=== PATIENT | female | born 1995 | race Caucasian/White ===

== ENCOUNTER → 2019-01-04 15:00 | Day surgery (SDC) | payer OTHER ==
[~2019-01-04 15:00] MED LIST: Dexamethasone IV* 4 MG/ML 1 ML (4 MG) ONE; EPHEDrine (Pressors)* 50 MG/ML VIAL ONE; Ketorolac INJ* 30 MG/ML 1 ML VIAL ONE; Lidocaine 2% PF * 5 ML VIAL ONE; Naloxone* 0.4 MG/ML 1 ML VIAL IV PRN; Ondansetron INJ* 2 MG/ML VIAL ONE; Propofol* 10 MG/ML 20 ML BTL ONE; fentaNYL* 50 MCG/ML 2 ML VIAL (100 MCG VIAL) ONE
--- NOTE | 2019-01-04 17:34 | BRIEFOPN ---
Brief Operative Note - Surgery Procedures: OPERATIVE REPORT Pre-op: Right breast abscess Post-Op: Right retroareolar breast abscess Procedure:I and D right breast abscess Surgeon: MD Leif Asst: none Anes: general with local , Dr. Bahena IVF:min EBL:min Specimen: Pus for gram stain and culture Drain: /" Melonie drain Wound: 4 To PACU
[2019-01-04 18:34] VITALS: BP 133/101
--- NOTE | 2019-01-07 09:25 | OP ---
CC: [facility] * DATE OF OPERATION: 01/04/19 - SDS DATE OF : 96 SURGEON: Saeed Yadav MD. EVENT OPERATIONS MANAGER: None. ANESTHESIOLOGIST: Dr. Bahena. ANESTHESIA: General with local. PRE-OP DIAGNOSIS: Right retroareolar breast abscess. POST-OP DIAGNOSIS: Right retroareolar breast abscess. OPERATIVE PROCEDURE: Incision and drainage of right retroareolar breast abscess. WOUND CLASSIFICATION: IV. SPECIMENS: Pus for Gram stain and culture from abscess. DRAIN: 1/4-inch Melonie drain. COMPLICATIONS: None. INDICATION: Ms. Paris Siu is a 23-year-old [employer] senior, who has had increasing discomfort with pain behind the right nipple, right breast. She had nipple ring in place, which we reviewed yesterday. She was seen in the [facility] and started on antibiotics several days ago and referred for surgical evaluation. She was seen in the office yesterday, noted to have a tender firm mass in the retroareolar area with an ultrasound that showed a small abscess. She is now being taken to the operating room for incision and drainage of a right breast abscess. It was felt that anesthesia was necessary due to her discomfort. Procedure was discussed with the patient and the risks of, but not limited to, bleeding, infection, further abscess, discomfort, cosmetic deformities of a scar and possible dimpling of the nipple or breast skin as well as further surgical intervention were all explained. Risks of anesthesia were briefly discussed. DESCRIPTION OF PROCEDURE: Written informed consent was obtained, the right breast was marked with indelible ink. Preoperative antibiotics were not given. The patient was taken to the operating room, placed in the supine position. Sequential compression devices and warming blanket were applied. General anesthesia was administered and the right breast was prepped and draped in the usual sterile fashion. Time-out verification was completed. Initially, a mixture of 1% lidocaine plain and a 0.25% Marcaine plain was infiltrated extensively around the right nipple area. There was a firm indurated area behind the right nipple. I used an ultrasound machine and noted a small fluid collection. I then proceeded with an 18-gauge needle and passed this into the mass, and there was some creamy pus that was aspirated. This was sent for Gram stain and culture. A small circumareolar incision was made between the 5 o'clock and 7 o'clock position on the nipple and carried down through subcutaneous tissue. I followed the tract of the needle into a small abscess carefully and further pus was drained directly behind the nipple. This was irrigated. I appreciated no further undrained pus. A 1/4-inch [place] drain was passed into the space through the incision and sutured to the skin with a single 4-0 nylon suture. I placed 2 loose 4-0 nylon sutures along the skin to pull the incision together. Dry sterile dressings were applied. The patient tolerated the procedure well and was taken to the recovery room in stable condition. [id number]/[facility] #: [id number] JD
== END | disposition home or self-care (01) ==
LOC: OR 15:00
PROVIDERS: ATTEND Surgery
DX: N61.1 Abscess of the breast and nipple (principal); Z87.891 Personal history of nicotine dependence; J45.990 Exercise induced bronchospasm; F41.8 Other specified anxiety disorders
CPT/HCPCS: 81025; 87070; 87073; 87076; 87077; 87185; 87186; 87205; J1100; J1885; J2405; J2704; J3010; J3490